=== PATIENT | female | born 1950 ===

== ENCOUNTER 2018-06-03 20:44 | Emergency (ER) | payer BC ==
[2018-06-03 21:26] VITALS: BP 98/62; PULSE 72; RESP 16; TEMP 98.7; O2SAT 97
--- NOTE | 2018-06-03 21:51 | ED PDOC ---
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 states for the past 5 days she's had atraumatic L foot pain on the bottom of the foot. Reports pain has progressively worsen and now radiates slightly into ankle. Denies numbness, tingling, trauma, hx of DM, calf pain. Of note, pt. states she is an avid walker and walks approximately 40 blocks per day during the work week. Past Medical History Reviewed: Historical Data, Nursing Documentation, Vital Signs Vital Signs: Last Vital Signs Temp 98.7 F 06/03/18 21:25 Pulse 72 06/03/18 21:25 Resp 16 06/03/18 21:25 BP 98/62 L 06/03/18 21:25 Pulse Ox 97 06/03/18 21:25 - Medical History PMH: Denies: Diabetes - Family History Family History: States: No Known Family Hx - Home Medications Home Medications: Ambulatory Orders Medication Instructions Recorded Meloxicam [Mobic] 7.5 mg PO DAILY PRN #10 tab 06/03/18 - Allergies Allergies/Adverse Reactions: Allergies Allergy/AdvReac Type Severity Reaction Status Date / Time No Known Allergies Allergy Verified 06/03/18 21:28 Review of Systems ROS Statement: Except As Marked, All Systems Reviewed And Found Negative Physical Exam - Physical Exam Appears: Positive for: Well, Non-toxic, No Acute Distress Skin: Positive for: Normal Color, Warm. Negative for: Rash Eye Exam: Positive for: Normal appearance Pulses-Dorsalis Pedis (L): 2+ Pulses-Dorsalis Pedis (R): 2+ Extremity: Positive for: Normal ROM (FROM actively of L foot and ankle), Other (L ankle/foot: no tenderness, swelling, deformity, warmth, erythema, lesions, or break in skin integrity; negative Negrita's sign b/l). 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 Disposition - Clinical Impression Clinical Impression: Foot pain - Patient ED Disposition Is Patient to be Admitted: No - Disposition Referrals: Kyleigh Rodriguez DPM [Staff Provider] - Podiatry Clinic [Outside] Disposition: Routine/Home Disposition Time: 23:10 Condition: STABLE Additional Instructions: FOLLOW UP WITH BUGGY LOADER FOR FURTHER EVALUATION RETURN TO ED IMMEDIATELY IF SYMPTOMS WORSEN LINDA MANN, thank you for letting us take care of you today. Your provider was Raza Paniagua MD and you were treated for LT LEG PAIN. The emergency medical care you received today was directed at your acute symptoms. If you were prescribed any medication, please fill it and take as directed. It may take several days for your symptoms to resolve. Return to the Emergency Department if your symptoms worsen, do not improve, or if you have any other problems. Please contact your doctor or call one of the physicians/clinics you have been referred to that are listed on the Patient Visit Information form that is included in your discharge packet. Bring any paperwork you were given at discharge with you along with any medications you are taking to your follow up visit. Our treatment cannot replace ongoing medical care by a primary care provider outside of the emergency department. Thank you for allowing the [facility] team to be part of your care today. If you had an X-Ray or CT scan: A Radiologist will review the ED reading if any change in treatment is needed we will contact you. If you had a blood, urine, or wound culture: It will take several days for the results, if any change in treatment is needed we will contact you. If you had an STI test: It will take 48 hours for the results. Please call after 1 week if you have not heard back. Prescriptions: Meloxicam [Mobic] 7.5 mg PO DAILY PRN #10 tab PRN Reason: Pain, Mild (1-3) Instructions: Metatarsalgia (DC) Forms: [employer] (Maltese)
--- NOTE | 2018-06-04 11:30 | RAD ---
Date of service: 06/03/2018 PROCEDURE: Left Foot Radiographs. HISTORY: Pain. No history of recent/ related trauma provided COMPARISON: None. FINDINGS: BONES: Normal. No fracture. JOINTS: Normal. SOFT TISSUES: Normal. OTHER FINDINGS: None. IMPRESSION: No significant or acute findings to account for/ related to the clinical presentation.
== END 2018-06-03 23:15 | disposition home or self-care (01) ==
LOC: H.ER 20:44
DX: M79.672 Pain in left foot (principal)
CPT/HCPCS: 73630; 96372; 99283; J1885